=== PATIENT | male | born 1965 | race Caucasian/White ===

== ENCOUNTER 2023-09-15 12:07 | Emergency (ER) | payer OTHER ==
[~2023-09-15] VITALS: Ht 180.3 cm; Wt 159.0 kg
--- OUTSIDE RECORDS SUMMARY | 2023-09-15 12:08 | XMS ---
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 E.D. VISIT COUNT (12 MO.) 1 TRAY Chandra TOTAL 1 NOTE: Visits indicate total known visits. ED/UCC VISIT TRACKING (12 MO.) 09/15/2023 12:07 [facility] [place] TYPE: Emergency COMPLAINT: - RAPID HEART RATE INPATIENT VISIT TRACKING (12 MO.) No inpatient visits to display in this time frame [email or web address]
[2023-09-15] MEDS ORDERED: HYDROCHLOROTHIA25 MG PO (12:31)
[2023-09-15] MEDS ORDERED: METHOCARBAMOL750 MG (12:31)
[2023-09-15] MEDS ORDERED: CITALOPRAM HBR20 MG PO (12:31)
[2023-09-15] MEDS ORDERED: PREGABALIN75 MG PO (12:31)
[2023-09-15] MEDS ORDERED: HYDROCODON-ACE1 EA11 PO (12:31)
[2023-09-15] MEDS ORDERED: METOPROLOL SUCC25 MG PO (12:31)
[2023-09-15] MEDS ORDERED: LISINOPRIL40 MG PO (12:31)
[2023-09-15] MEDS ORDERED: OMEPRAZOLE20 MG PO (12:31)
[2023-09-15] MEDS ORDERED: ATORVASTATIN CA40 MG PO (12:31)
[2023-09-15] MEDS ORDERED: SULFASALAZINE500 MG PO (12:32)
[2023-09-15 12:34] LABS: RBC 5.87 M/ul (4.3-5.7)
[2023-09-15 12:36] LABS: BASOPHILS 1.5 % (0-2); EOSINOPHILS 0.7 % (0-6); HEMATOCRIT 44.3 % (35.0-50.0); HEMOGLOBIN 13.8 g/dL (12.0-18.0); LYMPHOCYTES 25.9 % (24-44); MCH 23.5 (27-36); MCHC 31.1 g/dl (30-36); MCV 75.5 fl (81-99); MONOCYTES 11.4 % (0-12); NEUTROPHILS 60.5 % (39-80); PLATELET COUNT 273 K/uL (140-440); RDW 16.8 (10.5-15.0)
[2023-09-15] MEDS ORDERED: METOPROLOL TARTRATE 5 MG/5 ML VIAL IV SCH (12:45)
[2023-09-15 12:55] LABS: ALBUMIN 3.6 g/dL (3.4-5.0); ANION GAP 12.2 (7-21); BILIRUBIN, TOTAL 0.8 ng/dL (0.2-1.0); BUN/CREATININE RATIO 17.27 (6.0-28.6); CALCIUM 9.6 mg/dL (8.5-10.1); CREATININE, SERUM 1.1 mg/dL (0.70-1.30); POTASSIUM 4.2 mmol/L (3.5-5.1); PROTEIN, TOTAL 7.2 g/dL (6.4-8.2)
[2023-09-15] MEDS ORDERED: FUROSEMIDE 40 MG/4 ML VIAL IV ONE (13:30)
[2023-09-15] MEDS ORDERED: METOPROLOL SUCCINATE 25 MG TABCR PO ONE (14:00)
[2023-09-15] MEDS ORDERED: AMLODIPINE BESYLATE 5 MG TAB PO ONE (14:00)
[2023-09-15] MEDS ORDERED: FUROSEMIDE20 MG PO (16:12)
[2023-09-15] MEDS ORDERED: NORVASC5 MG PO (16:12)
[2023-09-15] MEDS ORDERED: K-TAB ER20 MEQ PO (16:13)
[2023-09-15 16:26] VITALS: BP 142/107
--- NOTE | 2023-09-17 22:11 | EKG ---
[facility] [address] [place], [place] [address] Signed Atrial fibrillation with rapid ventricular response with premature ventricular or aberrantly conducted complexes Right bundle branch block Left anterior fascicular block Bifascicular block Inferior infarct , age undetermined Abnormal ECG No previous ECGs available Confirmed by GRADY CORDOBA MD ([id number]) on 09/17/2023 10:11:28 PM Electronically Signed By: GRADY CORDOBA 09/17/23 2211 PATIENT NAME: JESSE CHAMBERLAIN Electrocardiogram DATE OF : 65 PHYSICIAN: GRADY CORDOBA REPORT #: [id number] REPORT IS CONFIDENTIAL AND NOT TO BE RELEASED WITHOUT AUTHORIZATION
== END 2023-09-15 16:26 | disposition home or self-care (01) ==
LOC: ED 12:07
PROVIDERS: Emergency Medicine
DX: I11.0 Hypertensive heart disease with heart failure (principal); I50.9 Heart failure, unspecified; Z88.8 Allergy status to other drugs, medicaments and biological substances; Z79.899 Other long term (current) drug therapy
CPT/HCPCS: 36415; 71045; 80053; 83690; 83880; 84484; 85025; 93005; 93010; 96374; 96375; 99285-25; J1940